=== PATIENT | female | born 1995 | race Hispanic/Latino ===

== ENCOUNTER 2018-12-09 13:55 | Emergency (ER) | payer OTHER ==
--- NOTE | 2018-12-09 14:59 | EDPHYS ---
Physician Documentation [facility] Name: Viki Barraza Age: 23 yrs Sex: Female : 1995 Arrival Date: 12/09/2018 Time: 13:58 Bed 12 Private MD: None, None ED Physician Steven Ceja HPI: 12/09 15:03 This 23 yrs old Female presents to ER via Ambulatory with complaints of Ear snw Pain. 15:03 The patient presents with pain, that is acute. The complaints affect the left ear. snw Onset: The symptoms/episode began/occurred suddenly, last night. Associated signs and symptoms: The patient has no apparent associated signs or symptoms. Severity of symptoms: At their worst the symptoms were moderate severe in the emergency department the symptoms are unchanged. The patient has not experienced similar symptoms in the past. It is unknown whether or not the patient has recently seen a physician. Historical: - Allergies: 14:11 No Known Allergies; la1 - PMHx: 14:11 None; la1 - Immunization history:: Adult Immunizations up to date. - Social history:: Smoking status: Patient/guardian denies using tobacco. - Ebola Screening: : No symptoms or risks identified at this time. ROS: 15:03 Constitutional: Negative for fever, chills, and weight loss, Eyes: Negative for injury, snw pain, redness, and discharge, Neck: Negative for injury, pain, and swelling, Cardiovascular: Negative for chest pain, palpitations, and edema, Respiratory: Negative for shortness of breath, cough, wheezing, and pleuritic chest pain, Abdomen/GI: Negative for abdominal pain, nausea, vomiting, diarrhea, and constipation, Back: Negative for injury and pain, : Negative for injury, bleeding, discharge, and swelling, MS/Extremity: Negative for injury and deformity, Skin: Negative for injury, rash, and discoloration, Neuro: Negative for headache, weakness, numbness, tingling, and seizure. 15:03 ENT: Positive for ear pain. Exam: 15:02 Constitutional: This is a well developed, well nourished patient who is awake, alert, snw and in no acute distress. Head/Face: Normocephalic, atraumatic. Eyes: Pupils equal round and reactive to light, extra-ocular motions intact. Lids and lashes normal. Conjunctiva and sclera are non-icteric and not injected. Cornea within normal limits. Periorbital areas with no swelling, redness, or edema. Neck: Trachea midline, no thyromegaly or masses palpated, and no cervical lymphadenopathy. Supple, full range of motion without nuchal rigidity, or vertebral point tenderness. No Meningismus. Chest/axilla: Normal chest wall appearance and motion. Nontender with no deformity. No lesions are appreciated. Cardiovascular: Regular rate and rhythm with a normal S1 and S2. No gallops, murmurs, or rubs. Normal PMI, no JVD. No pulse deficits. Respiratory: Lungs have equal breath sounds bilaterally, clear to auscultation and percussion. No rales, rhonchi or wheezes noted. No increased work of breathing, no retractions or nasal flaring. Back: No spinal tenderness. No costovertebral tenderness. Full range of motion. Skin: Warm, dry with normal turgor. Normal color with no rashes, no lesions, and no evidence of cellulitis. MS/ Extremity: Pulses equal, no cyanosis. Neurovascular intact. Full, normal range of motion. Neuro: Awake and alert, GCS 15, oriented to person, place, time, and situation. Cranial nerves II-XII grossly intact. Motor strength 5/5 in all extremities. Sensory grossly intact. Cerebellar exam normal. Normal gait. Psych: Awake, alert, with orientation to person, place and time. Behavior, mood, and affect are within normal limits. 15:02 ENT: TM's: erythema, that is moderate, that is marked, TM edematous with bullous component, Examination of the other ear shows no obvious abnormality, Nose: no acute changes, Mouth: is normal, Posterior pharynx: is normal, Voice: is normal. 15:02 Abdomen/GI: Inspection: gravid appearance, is noted. Vital Signs: 14:12 Pulse 85; Resp 18; Temp 97.3; Pulse Ox 100% on R/A; Weight 78.93 kg; Height 5 ft. 2 in. la1 (157.48 cm); Pain 10/10; 14:14 BP 114 / 81; la1 14:12 Body Mass Index 31.82 (78.93 kg, 157.48 cm) la1 MDM: 14:23 Patient medically screened. snw 15:04 Data reviewed: vital signs, nurses notes. Data interpreted: Pulse oximetry: on room air snw is 100 %. Interpretation: normal. Counseling: I had a detailed discussion with the patient and/or guardian regarding: the historical points, exam findings, and any diagnostic results supporting the discharge/admit diagnosis, the need for outpatient follow up, to return to the emergency department if symptoms worsen or persist or if there are any questions or concerns that arise at home. Special discussion: I have referred the patient to see his PCP for further evaluation of high blood pressure. Based on the history and exam findings, there is no indication for further emergent testing or inpatient evaluation. I discussed with the patient/guardian the need to see the ENT specialist for further evaluation of the symptoms. I discussed with the patient/guardian the need to see the primary care provider for further evaluation of the symptoms. Administered Medications: 15:23 Drug: Rocephin (cefTRIAXone) 1 grams Route: IM; Site: right vastus lateralis; iw 15:23 Drug: Cortisporin Drops 4 drops Route: Otic; Site: left ear; iw 15:23 Drug: predniSONE 40 mg Route: PO; iw 15:37 Drug: Tylenol 1000 mg Route: PO; iw Disposition: 18:46 Co-signature as Attending Physician, Steven Ceja MD. rn Disposition: 12/09/18 14:59 Discharged to Home. Impression: Bullous myringitis, left ear. - Condition is Stable. - Discharge Instructions: Otitis Media With Effusion, Second Trimester of , Suxc-ea-Yiot. - Prescriptions for Augmentin 875- 125 mg Oral Tablet - take 1 tablet by ORAL route every 12 hours for 10 days; 20 tablet. Prednisone 20 mg Oral Tablet - take 2 tablet by ORAL route once daily for 5 days; 10 tablet. - Medication Reconciliation Form, Thank You Letter, Antibiotic Education, Prescription Opioid Use form. - Follow up: Private Physician; When: 2 - 3 days; Reason: Recheck today's complaints, Continuance of care, Re-evaluation by your physician. Follow up: Emergency Department; When: As needed; Reason: Worsening of condition. Signatures: Marcela Snowden, CARLOS-C BLANKET WINDER HELPER-Csnw Craig, Melody, RN RN iw Ceja, Steven, MD MD rn Attema, Bob, RN RN la1 Corrections: (The following items were deleted from the chart) 15:37 14:59 12/09/2018 14:59 Discharged to Home. Impression: Bullous myringitis, left ear. iw Condition is Stable. Forms are Medication Reconciliation Form, Thank You Letter, Antibiotic Education, Prescription Opioid Use. Follow up: Private Physician; When: 2 - 3 days; Reason: Recheck today's complaints, Continuance of care, Re-evaluation by your physician. Follow up: Emergency Department; When: As needed; Reason: Worsening of condition. snw
--- NOTE | 2018-12-09 14:59 | ER ---
Nurse's Notes [facility] Name: Viki Barraza Age: 23 yrs Sex: Female : 1995 Arrival Date: 12/09/2018 Time: 13:58 Bed 12 Private MD: None, None Diagnosis: Bullous myringitis, left ear Presentation: 12/09 14:11 Presenting complaint: Patient states: left ear pain since last night. Transition of la1 care: patient was not received from another setting of care. Onset of symptoms was December 09, 2018. Risk Assessment: Do you want to hurt yourself or someone else? Patient reports no desire to harm self or others. Initial Sepsis Screen: Does the patient meet any 2 criteria? No. Patient's initial sepsis screen is negative. Does the patient have a suspected source of infection? No. Patient's initial sepsis screen is negative. Care prior to arrival: None. 14:11 Method Of Arrival: Ambulatory la1 14:11 Acuity: CHANI 5 la1 Historical: - Allergies: 14:11 No Known Allergies; la1 - PMHx: 14:11 None; la1 - Immunization history:: Adult Immunizations up to date. - Social history:: Smoking status: Patient/guardian denies using tobacco. - Ebola Screening: : No symptoms or risks identified at this time. Screenin:14 Abuse screen: Denies threats or abuse. Nutritional screening: No deficits noted. la1 Tuberculosis screening: No symptoms or risk factors identified. Fall Risk None identified. Assessment: 14:14 General: Appears in no apparent distress. Behavior is calm, cooperative. Pain: la1 Complains of pain in left ear. Neuro: Level of Consciousness is awake, alert, obeys commands, Oriented to person, place, time, situation. EENT: Denies hearing loss. 14:14 Reassessment: Patient is alert, oriented x 3, equal unlabored respirations, skin la1 warm/dry/pink. Vital Signs: 14:12 Pulse 85; Resp 18; Temp 97.3; Pulse Ox 100% on R/A; Weight 78.93 kg; Height 5 ft. 2 in. la1 (157.48 cm); Pain 10/10; 14:14 BP 114 / 81; la1 14:12 Body Mass Index 31.82 (78.93 kg, 157.48 cm) la1 ED Course: 13:58 Patient arrived in ED. dl4 13:59 None, None is Private Physician. dl4 14:09 Marcela Snowden FNP-C [facility]. snw 14:09 Steven Ceja MD is Attending Physician. snw 14:12 Triage completed. la1 14:12 Arm band placed on left wrist. la1 14:14 Patient has correct armband on for positive identification. la1 14:14 No provider procedures requiring assistance completed. Patient did not have IV access la1 during this emergency room visit. 15:01 Melody Srinivasan, RN is Primary Nurse. iw Administered Medications: 15:23 Drug: Rocephin (cefTRIAXone) 1 grams Route: IM; Site: right vastus lateralis; iw 15:23 Drug: Cortisporin Drops 4 drops Route: Otic; Site: left ear; iw 15:23 Drug: predniSONE 40 mg Route: PO; iw 15:37 Drug: Tylenol 1000 mg Route: PO; iw Outcome: 14:59 Discharge ordered by . snw 15:36 Discharged to home ambulatory, with family. iw 15:36 Condition: good 15:36 Discharge instructions given to patient, family, Instructed on discharge instructions, follow up and referral plans. medication usage, Demonstrated understanding of instructions, follow-up care, medications, Prescriptions given X 2. 15:37 Patient left the ED. iw Signatures: Marcela Snowden FNP-C EMBOSSING UNIT OPERATOR-Csnw Melody Srinivasan RN RN iw Bob Mc RN RN la1 Jef Dobson dl4 Corrections: (The following items were deleted from the chart) 14:14 14:14 General: Appears in no apparent distress. Behavior is calm, cooperative, la1 la1
[2018-12-09] MEDS ORDERED: CEFTRIAXONE 1000 MG/VIAL ONE (15:23)
[2018-12-09] MEDS ORDERED: LIDOCAINE 1% MPF 5 ML VIAL ONE (15:23)
[2018-12-09] MEDS ORDERED: NEOMY/POLY/HC 1% OTIC DROPS ONE (15:23)
[2018-12-09] MEDS ORDERED: predniSONE 20 MG TAB ONE (15:24)
[2018-12-09] MEDS ORDERED: ACETAMINOPHEN 500 MG TAB ONE (15:40)
== END 2018-12-09 15:37 | disposition home or self-care (01) ==
LOC: ER 13:55
DX: H73.012 Bullous myringitis, left ear (principal)
CPT/HCPCS: 96372; 99283; J7512